=== PATIENT | female | born 1985 | race Caucasian/White ===

== ENCOUNTER → 2016-08-28 | Outpatient (CLI) | payer BC ==
[~2016-08-28] MED LIST: DIPH1TAB; FAMO20TA11 PO; MULT-506 PO; OXYC-57 PO; PRENTAB26 PO; TRDI30X IV.
[2016-08-28 16:01] LABS: URINE APPEARANCE CLEAR (CLEAR); URINE BILIRUBIN NEG (NEG); URINE COLOR YELLOW; URINE EPITHELIAL CELL AUTO 20-30 /lpf (0-5); URINE NITRITE NEG (NEG); URINE PH 6.5 (4.5-7.5); URINE SPECIFIC GRAVITY 1.009 (1.000-1.030); UROBILINOGEN NEG (NEG)
[2016-08-28 16:02] LABS: MANUAL MICROSCOPIC REQUIRED? NO; REVIEW REQ? NO
[2016-08-28 16:46] LABS: HEMATOCRIT 33.6 % (37-47)
[2016-08-28 19:07] LABS: GTGD 50 Grams
== END | disposition home or self-care (01) ==
LOC: C.LAB1850 14:40
PROVIDERS: ATTEND Obstetrics & Gynecology
DX: Z34.83 Encounter for supervision of other normal pregnancy, third trimester (principal)

== ENCOUNTER → 2016-10-23 | Outpatient (CLI) | payer BC | END | disposition home or self-care (01) | LOC: C.LABSPEC 11:06 | PROVIDERS: ATTEND Obstetrics & Gynecology | DX: Z34.83 Encounter for supervision of other normal pregnancy, third trimester (principal) ==

== ENCOUNTER → 2016-11-08 | Outpatient (CLI) | payer BC ==
[~2016-11-08] MED LIST changes: -DIPH1TAB; +DIPH1TAB87
[2016-11-08 17:20] LABS: BASO % 0.1 %; BASO ABS # 0.01 K/uL (0-0.2); COMPLETE YES; EOS % 2.6 %; HEMATOCRIT 37.8 % (37-47); IG% 0.3 %; LYMPH % 27.9 %; LYMPH ABS # 2.57 K/uL (1.2-3.4); MEAN CELL VOLUME 91.3 fL (80-100); MEAN CORPUSCULAR HEMOGLOBIN 30.7 pg (25-34); MEAN CORPUSCULAR HGB CONC 33.6 g/dl (32-36); MEAN PLATELET VOLUME 11.3 fL (7.4-10.4); MONO % 6.9 %; NEUT % 62.2 %; PLATELET COUNT 231 K/uL (130-400); RED BLOOD COUNT 4.14 M/uL (4.2-5.4); WHITE BLOOD COUNT 9.22 K/uL (4.8-10.8)
== END | disposition home or self-care (01) ==
LOC: C.LAB1850 16:42
PROVIDERS: ATTEND Obstetrics & Gynecology
DX: Z01.812 Encounter for preprocedural laboratory examination (principal)

== ENCOUNTER 2016-11-11 07:21 | Inpatient (IN) | payer BC ==
--- NOTE | 2016-11-08 19:06 | HISTORY & PHYSICAL EXAMINATION ---
DATE OF ADMISSION: 11/11/2016 ADMIT DIAGNOSES: 1. Intrauterine at 39 and 1/7 weeks. 2. Double footling breech presentation. HISTORY OF PRESENT ILLNESS: The patient is a 31-year-old white female, 2, para 1-0-0-1 with an EDC of 11/17/2016, making her 39 and 1/7 weeks. She presents for a primary section for footling breech presentation. This was discovered on an ultrasound at 36 weeks where low lying placenta was resolved but the footling breech presentation was discovered. She declines attempted external cephalic version. Otherwise, this has been uncomplicated. She notes mild contractions, no vaginal bleeding, some normal discharge for her and good movement. PAST OBSTETRIC AND GYNECOLOGIC HISTORY: Significant for a normal spontaneous vaginal delivery in 2013 for a 7-pound 2-ounce baby at 39 and 4/7 weeks. She does have a history of an abnormal Pap smear with positive HPV and a colposcopy in 2004. She denies other sexually transmitted diseases. ALLERGIES: SULFA DRUGS. MEDICATIONS: Dulcolax as needed, tabs, Tums and Benadryl as needed. PAST MEDICAL HISTORY: The patient is healthy. Denies thyroid disease, asthma, heart disease, heart murmur, diabetes, kidney or liver problems. She has a history of chickenpox in the past. PAST SURGICAL HISTORY: Includes wisdom teeth removal and colposcopy. SOCIAL HISTORY: The patient is , lives with her spouse and daughter. She denies tobacco, alcohol or drug use. PHYSICAL EXAMINATION: GENERAL: This is a well-developed, well-nourished white female in no acute distress. VITAL SIGNS: Blood pressure 106/82, weight 179 pounds. NECK: Supple without thyromegaly or lymphadenopathy. CHEST: Clear to auscultation bilaterally. CARDIOVASCULAR: Regular rate and rhythm without murmurs, gallops or rubs. BACK: Without costovertebral angle tenderness. ABDOMEN: Soft, gravid and nontender. EXTREMITIES: Show some trace edema but are otherwise benign. PELVIC: Deferred. LABORATORY DATA: Blood type B positive, antibody negative, Pap negative, rubella immune, RPR nonreactive, hepatitis B is negative, HIV negative, chlamydia and gonorrhea cultures negative, 1-hour GTT at 16 weeks 112. Declined quad screen, 1-hour GTT at 28 weeks was 100 and GBS is negative. ASSESSMENT: Lolly is a 31-year-old white female, 2, para 1-0-0-1 with an EDC of 11/17/2016 for an estimated gestational age of 39 and 1/7 weeks, who has a footling breech presentation. She presents today for primary section. She declines external cephalic version. The risks of the procedure were discussed with the patient including the risks of anesthesia, bleeding requiring transfusion, infection, poor wound healing, damage to surrounding structures including bowel, bladder, vessels, nerves and ureters with need for further surgery, hospitalization or intervention. We discussed there could be a possible risk to the fetus of injury. We discussed the other risks of surgery including heart attack, blood clot, stroke or . Questions were asked and answered. Consent was reviewed and signed and surgery is scheduled for November 11.
[~2016-11-11] VITALS: Ht 170.2 cm; Wt 81.5 kg
[2016-11-11] VITALS (11 sets, daily range): BP systolic 119–126; BP diastolic 68–75; PULSE 77–89; TEMP 36.5–36.7; O2SAT 95–100; Ht 170.2 cm; Wt 81.5 kg
[~2016-11-11 07:21] MED LIST changes: +CEFAZOLIN IV 2,000 MG in DEXTROSE 5% 50ML 50 ML IV SCH; -DIPH1TAB87; -FAMO20TA11 PO; -OXYC-57 PO; -TRDI30X IV.
[2016-11-11] MEDS ORDERED: CITRIC ACID/SODIUM CITRATE 15 ML UDC PO ONE (08:00)
[2016-11-11 09:02] LABS: BASO % 0.2 %; BASO ABS # 0.02 K/uL (0-0.2); COMPLETE YES; EOS % 2.5 %; HEMATOCRIT 38.6 % (37-47); IG% 0.3 %; LYMPH % 27.6 %; LYMPH ABS # 2.49 K/uL (1.2-3.4); MEAN CELL VOLUME 90.8 fL (80-100); MEAN CORPUSCULAR HEMOGLOBIN 31.1 pg (25-34); MEAN CORPUSCULAR HGB CONC 34.2 g/dl (32-36); MEAN PLATELET VOLUME 11.2 fL (7.4-10.4); MONO % 6.9 %; NEUT % 62.5 %; PLATELET COUNT 234 K/uL (130-400); RED BLOOD COUNT 4.25 M/uL (4.2-5.4); WHITE BLOOD COUNT 9.02 K/uL (4.8-10.8)
[2016-11-11] MEDS ORDERED: DIPH1TAB87 (09:36)
[2016-11-11] MEDS ORDERED: FAMO20TA11 PO (09:36)
[2016-11-11] MEDS ORDERED: FENTANYL CITRATE INJ 50 MCG/1 ML 2 ML VIAL ONE (10:01)
[2016-11-11] MEDS ORDERED: MoRPHine SULFATE PF 1 MG/ML 10 ML AMP/VIAL ONE (10:02)
[2016-11-11] MEDS ORDERED: PHENYLEPHRINE 100MCG/ML 5ML SYR ONE (10:09)
[2016-11-11] MEDS ORDERED: OXYTOCIN INJ 10 UNITS/ML VIAL ONE (10:11)
[2016-11-11] MEDS ORDERED: CITRIC ACID/SODIUM CITRATE 15 ML UDC ONE (10:12)
[2016-11-11] MEDS ORDERED: ONDANSETRON INJ 2 MG/ML 2 ML VIAL ONE (11:14)
[2016-11-11] MEDS ORDERED: METHYLERGONOVINE MALEATE 0.2 MG/ML AMP ONE (11:16)
[2016-11-11] MEDS ORDERED: DEXAMETHASONE SOD INJ 4 MG/ML VIAL ONE (11:18)
[2016-11-11] MEDS ORDERED: PROMETHAZINE HCL INJ 25 MG/ML 1 ML VIAL ONE (11:20)
[2016-11-11] MEDS ORDERED: EpHEDrine SULFATE 50MG/5ML SYR ONE (11:21)
[2016-11-11] MEDS ORDERED: DIPHTHERIA/TETANUS/PERTUSSIS 0.5 ML SYR/VIAL IM. ONE (11:30)
[2016-11-11] MEDS ORDERED: BENZOCAINE 20% AER SPR 82.5 GM CAN EXT PRN (11:30)
[2016-11-11] MEDS ORDERED: SENNA 8.6 MG TAB PO PRN (11:30)
[2016-11-11] MEDS ORDERED: MAGNESIUM HYDROXIDE SUSP 30 ML UDC PO PRN (11:30)
[2016-11-11] MEDS ORDERED: HYDROCORTISONE ACETATE 25 MG SUPP PR PRN (11:30)
[2016-11-11] MEDS ORDERED: SUPERCREAM 0.870 % 15GM JAR EXT PRN (11:30)
[2016-11-11] MEDS ORDERED: LANOLIN OINT EXT PRN ×2 (11:30)
--- NOTE | 2016-11-11 11:41 | [facility] Post Operative Brief Note ---
Immediate Operative Summary Operative Date Nov 11, 2016. Pre-Operative Diagnosis Inter uterine at 39 weeks and 1 day. Breech presentation. Pt. desires primary caesarean section. Post-Operative Diagnosis Same as above. Procedure(s) Performed Primary lower transverse caesarean section. Delivery of live female at 1104. Surgeon Dr[address] Pittman Automat Car Attendant Surgeon(s) Dr. Mensah Estimated Blood Loss 700cc Findings Delivered a viable female , APGARS 8,9. Weight 8 lbs 12.6oz. Normal uterus, fallopian tubes and ovaries bilaterally Specimens A: Placenta-hold B: Cord blood Drains Downey to gravity Anesthesia Spinal Complication(s) None Disposition L&D
[2016-11-11] MEDS ORDERED: LACTATED RINGER'S 1000ML 500 ML IV PRN (11:44)
[2016-11-11] MEDS ORDERED: NALOXONE HCL INJ 1 MG in SODIUM CHLORIDE 0.9% 1000ML 1,000 ML IV PRN ×4 (11:44)
[2016-11-11] MEDS ORDERED: NALOXONE HCL INJ 0.08 MG in SYRINGE 1.8 ML IV PRN (11:44)
[2016-11-11] MEDS ORDERED: SODIUM CHLORIDE 0.9% 1000ML 1,000 ML IV PRN (11:44)
[2016-11-11] MEDS ORDERED: ONDANSETRON INJ 2 MG/ML 2 ML VIAL IV PRN (11:45)
[2016-11-11] MEDS ORDERED: NALOXONE HCL 0.4 MG/1 ML VIAL/CARP IV PRN (11:45)
[2016-11-11] MEDS ORDERED: PROMETHAZINE HCL INJ 25 MG in SODIUM CHLORIDE 0.9% 50ML 50 ML IV PRN (11:45)
[2016-11-11] MEDS ORDERED: EpHEDrine SULFATE INJ 50 MG/ML AMP IV PRN (11:45)
[2016-11-11] MEDS ORDERED: DiphenhydrAMINE HCL 50 MG/ML VIAL IV PRN (11:45)
[2016-11-11] MEDS ORDERED: NO NARCOTICS OR SEDATIVES SCH (11:45)
[2016-11-11] MEDS ORDERED: NALBUPHINE HCL INJ 10 MG/ML AMP IV PRN (11:45)
[2016-11-11] MEDS ORDERED: MoRPHine SULFATE PF 1 MG/ML 10 ML AMP/VIAL EPI PRN (11:45)
--- NOTE | 2016-11-11 11:48 | Medical Student: [facility] ---
Immediate Operative Summary Operative Date Nov 11, 2016. Pre-Operative Diagnosis Intrauterine at 39 1/7 wks. Double footling breech presentation Post-Operative Diagnosis Same. Procedure(s) Performed Primary section with low transverse incision. Viable female infant delivered at [address]. Sur[address] Mary Pittman [employer] Surgeon(s) Dr. Myles Mensah Estimated Blood Loss 700cc Findings Viable infant female, APGARs 8, 9 at 1 and 5 minutes respectively. Weight 8 lb 12 oz. Normal uterus, ovaries and fallopian tubes bilaterally. Specimens A. Placenta - hold B. Cord Blood Drains Downey Anesthesia Spinal Complication(s) None Disposition L&D
[2016-11-11] MEDS ORDERED: OXYTOCIN INJ 20 UNITS in LACTATED RINGER'S 1000ML 1,000 ML IV SCH (12:00)
[2016-11-11] MEDS: KETOROLAC TROMETHAMINE 30 MG/ML VIAL IV. PRN ×2 (14:51→23:48)
--- NOTE | 2016-11-11 17:50 | Anesthesiology Progress Note ---
Anesthesia Post Op Note Date & Time Nov 11, 2016 at 17:49 Vital Signs Pain Intensity: 2.0 Vital Signs Past 12 Hours Date Time Temp Pulse Resp B/P Pulse Ox O2 Delivery O2 Flow Rate FiO2 11/11/16 17:15 18 100 11/11/16 16:15 18 100 11/11/16 15:30 100 Room Air 11/11/16 15:30 36.7 86 18 126/74 100 Room Air 11/11/16 15:15 18 100 11/11/16 14:45 36.5 77 16 126/75 100 Room Air Notes Mental Status: alert / awake / arousable, participated in evaluation Pt Amnestic to Procedure: No Nausea / Vomiting: adequately controlled Pain: adequately controlled Airway Patency, RR, SpO2: stable & adequate BP & HR: stable & adequate Hydration State: stable & adequate Neuraxial Anesthesia: was administered, sensory block is resolving Anesthetic Complications: no major complications apparent
[2016-11-11] MEDS ORDERED: NURSING VERBAL MED ORDER ONE (20:30)
[2016-11-11] MEDS ORDERED: LACTATED RINGER'S 1000ML 1,000 ML IV SCH (20:45)
[2016-11-12] VITALS (8 sets, daily range): BP systolic 102–112; BP diastolic 60–68; PULSE 63–82; TEMP 36.5–37.2; O2SAT 97–100
[2016-11-12] MEDS: IBUPROFEN 600 MG TAB PO PRN ×4 (05:32→20:32)
[2016-11-12] MEDS: OXYCODONE/ACETAMINOPHEN 5-325 TAB PO PRN ×4 (05:32→20:32)
[2016-11-12] MEDS ORDERED: OXYCODONE/ACETAMINOPHEN 5-325 TAB PO PRN (06:00)
[2016-11-12] MEDS ORDERED: ONDANSETRON INJ 2 MG/ML 2 ML VIAL IV PRN (06:00)
[2016-11-12] MEDS ORDERED: DiphenhydrAMINE HCL 50 MG/ML VIAL IV PRN (06:00)
[2016-11-12] MEDS ORDERED: KETOROLAC TROMETHAMINE 30 MG/ML VIAL IV. PRN (06:00)
[2016-11-12] MEDS ORDERED: DC INTRASPINAL MORPHINE ONE (06:00)
[2016-11-12 06:25] LABS: BASO % 0.1 %; BASO ABS # 0.01 K/uL (0-0.2); COMPLETE YES; EOS % 0.3 %; HEMATOCRIT 32.8 % (37-47); IG% 0.3 %; LYMPH % 23.7 %; LYMPH ABS # 3.01 K/uL (1.2-3.4); MEAN CELL VOLUME 91.6 fL (80-100); MEAN CORPUSCULAR HEMOGLOBIN 30.4 pg (25-34); MEAN CORPUSCULAR HGB CONC 33.2 g/dl (32-36); MEAN PLATELET VOLUME 11.1 fL (7.4-10.4); NEUT % 68.6 %; PLATELET COUNT 217 K/uL (130-400); RED BLOOD COUNT 3.58 M/uL (4.2-5.4)
--- NOTE | 2016-11-12 06:49 | Medical Student: [facility] ---
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 Subjective conversation w/ patient Ambulation: limited ambulation (to bathroom) Voiding: no voiding problems Passing Gas: Yes Diet Tolerance: Regular Diet Lochia: Moderate Feeding Type: Breast Feeding Pain: 2/10, controlled with pain medication Review of Systems Constitutional: No chills, No fever Respiratory: No cough, No shortness of breath Cardiac: No chest pain, No edema, No palpitations Breast: No breast pain, No problem reported Abdomen: + pain (with movement), No nausea, No vomiting Female : No dysuria, No urinary frequency Objective Vital Signs Date Time Temp Pulse Resp B/P Pulse Ox O2 Delivery O2 Flow Rate FiO2 11/12/16 03:00 36.8 73 18 112/68 100 Room Air 11/12/16 02:00 16 98 11/12/16 01:00 18 100 11/12/16 00:15 100 Room Air 11/12/16 00:15 37.2 82 18 106/66 Room Air 11/12/16 00:15 20 99 11/12/16 00:00 18 98 11/11/16 23:00 18 95 11/11/16 22:15 18 100 11/11/16 21:15 18 98 11/11/16 20:15 18 99 11/11/16 19:15 18 100 11/11/16 19:15 36.5 89 18 119/68 100 Room Air 11/11/16 18:15 18 99 11/11/16 17:15 18 100 11/11/16 16:15 18 100 11/11/16 15:30 100 Room Air 11/11/16 15:30 36.7 86 18 126/74 100 Room Air 11/11/16 15:15 18 100 11/11/16 14:45 36.5 77 16 126/75 100 Room Air Physical Exam General Appearance: WELL-APPEARING, NO APPARENT DISTRESS Respiratory/Chest: lungs clear, normal breath sounds, no respiratory distress, no accessory muscle use Cardiovascular: regular rate, rhythm, no edema, no murmur Abdomen: normal bowel sounds, soft Fundus: Firm, Non-Tender, Relation to Umbilicus (1 cm below) Incision Description: Clean, Dry & Intact Extremities: normal inspection, no pedal edema, no calf tenderness Laboratory Results Last 24 Hours Test 4/17/17 08:30 11/12/16 05:50 White Blood Count 9.02 K/uL 12.70 K/uL Red Blood Count 4.25 M/uL 3.58 M/uL Hemoglobin 13.2 g/dL 10.9 g/dL Hematocrit 38.6 % 32.8 % Mean Corpuscular Volume 90.8 fL 91.6 fL Mean Corpuscular Hemoglobin 31.1 pg 30.4 pg Mean Corpuscular Hemoglobin Concent 34.2 g/dl 33.2 g/dl Platelet Count 234 K/uL 217 K/uL Mean Platelet Volume 11.2 fL 11.1 fL Neutrophils (%) (Auto) 62.5 % 68.6 % Lymphocytes (%) (Auto) 27.6 % 23.7 % Monocytes (%) (Auto) 6.9 % 7.0 % Eosinophils (%) (Auto) 2.5 % 0.3 % Basophils (%) (Auto) 0.2 % 0.1 % Neutrophils # (Auto) 5.63 K/uL 8.71 K/uL Lymphocytes # (Auto) 2.49 K/uL 3.01 K/uL Monocytes # (Auto) 0.62 K/uL 0.89 K/uL Eosinophils # (Auto) 0.23 K/uL 0.04 K/uL Basophils # (Auto) 0.02 K/uL 0.01 K/uL RDW Standard Deviation 45.5 fL 46.1 fL RDW Coefficient of Variation 13.9 % 13.9 % Immature Granulocyte % (Auto) 0.3 % 0.3 % Immature Granulocyte # (Auto) 0.03 K/uL 0.04 K/uL Medications Current Inpatient Medications Medications (Trade) Dose Ordered Sig/Susan Route Start Time Stop Time Status Last Admin Dose Admin Prenat Multivit/ [place]/Iron/Folic Ac ( Vitamin Tab) 1 tab DAILY PO 11/12/16 08:00 12/12/16 07:59 Ketorolac Tromethamine (Toradol Inj) 30 mg Q6H PRN IV. 11/12/16 06:00 11/17/16 05:59 Oxycodone/ Acetaminophen (Percocet 5-325mg Tab) 1 tab Q4H PRN PO 11/12/16 06:00 11/26/16 05:59 11/12/16 05:32 1 TAB Oxycodone/ Acetaminophen (Percocet 5-325mg Tab) 2 tab Q4H PRN PO 11/12/16 06:00 11/26/16 05:59 Ibuprofen (Motrin Tab) 600 mg Q4H PRN PO 11/11/16 11:30 12/11/16 11:29 11/12/16 05:32 600 MG Ondansetron HCl (Zofran Inj) 4 mg Q4H PRN IV 11/12/16 06:00 12/12/16 05:59 Bisacodyl (Dulcolax Tab) 5 mg HS ONCE PO 11/12/16 22:00 11/12/16 22:01 Magnesium Hydroxide (Milk Of Magnesia Susp) 30 ml HS PRN PO 11/11/16 11:30 12/11/16 11:29 Cocaine HCl (Supercream 0.870% Cr) BID PRN EXT 11/11/16 11:30 11/25/16 11:29 Lanolin (Lanolin Oint) PRN PRN EXT 11/11/16 11:30 12/11/16 11:29 Hydrocortisone Acetate (Anusol Hc Supp) 25 mg BID PRN [place] 11/11/16 11:30 12/11/16 11:29 Benzocaine (Dermoplast Aero Spr) 1 appln PRN PRN EXT 11/11/16 11:30 12/11/16 11:29 Diphenhydramine HCl (Benadryl Cap) 25 mg QID PRN PO 11/12/16 06:00 12/12/16 05:59 Diphenhydramine HCl (Benadryl Inj) 25 mg QID PRN IV 11/12/16 06:00 12/12/16 05:59 Senna 17.2 mg 17.2 mg HS PRN PO 11/11/16 11:30 12/11/16 11:29 Lactated Ringer's (Lr 1000ml) 1,000 ml @ 125 mls/hr Q8H IV 11/11/16 20:45 12/11/16 20:44 11/11/16 21:13 125 MLS/HR Assessment and Plan Post-Op Day Number: 1 Continue Routine Care: ASSESSMENT: Lolly is a 31 year old postop day#1 s/p section for double footling breech at 39 1/7 weeks. She is Blood type B+, GBS negative and Rubella immune. Doing well clinically. PLAN: Continue routine care Encourage ambulation as tolerated. Continue PO diet and fluids. Encourage . Pain medication as needed. Resident Physician Supervision Note: I interviewed and examined the patient. Discussed with Dr. Mensah and agree with findings and plan as documented in the note. Any exceptions or clarifications are listed here: [None] Documented By: Bernardino West
--- NOTE | 2016-11-12 07:06 | OPERATIVE REPORT ---
DATE OF OPERATION: 11/11/2016 PREOPERATIVE DIAGNOSES: 1. Intrauterine at 39 and 1/7 weeks. 2. Complete breech. POSTOPERATIVE DIAGNOSES: Same. PROCEDURE: Primary low transverse section. SURGEON: Dr. Mary Pittman. VALVE TECHNICIAN: Franco Mensah, PGY-1 and Mary Oneill, MS3 ANESTHESIA: Spinal. ESTIMATED BLOOD LOSS: 700 mL. FLUIDS: 2000 mL. URINE OUTPUT: 300 mL of concentrated urine drained from the bladder at the end of the procedure. INDICATIONS: Lolly is a 31-year-old white female 2, para 1-0-0-1, whose baby was discovered to be in double footling breech presentation at a 36-week ultrasound. She was offered an attempted external cephalic version, which she declined. She presents today for primary section. FINDINGS: Viable female infant in complete breech presentation, sacrum anterior. Apgars were 8 and 9. Weight 8 pounds 12 ounces. Normal uterus, tubes, and ovaries were noted bilaterally. COMPLICATIONS: None. DRAINS: Downey. DISPOSITION: To recovery room in stable condition. DESCRIPTION OF PROCEDURE: The patient was taken to the operating room, where she was identified verbally and by bracelet. She was seated on the operating table where a spinal anesthetic was placed via anesthesia. She was then placed in dorsal supine position with a leftward tilt and a Downey catheter was placed sterilely. She was then prepped and draped in normal sterile fashion. Her anesthetic was tested and found to be adequate. Time-out was held identifying correct patient, procedure and positioning and preoperative antibiotics. A Pfannenstiel skin incision was made with the knife and taken down to the underlying layer of fascia with the knife. Bleeding was attended to with Bovie electrocautery. The fascia was incised in the midline with the knife and taken out laterally with scissors. The superior edge of the fascial incision was grasped, elevated and the underlying layer of rectus muscle was taken off bluntly and with scissors. In a similar fashion, the inferior edge of the fascial incision was grasped, elevated and the underlying layer of rectus muscle was taken off bluntly and with scissors. The muscles were bluntly and sharply in the midline. The peritoneum was entered bluntly and taken superiorly and inferiorly with good visualization of the bladder. Palpation of the uterus revealed persistent breech presentation. An incision was scored with a knife and was entered. The incision was stretched with the die cast operator's fingers. The amniotic fluid was ruptured with a snap, it was clear. The die cast operator's hand was placed into the pelvis and the sacrum was identified to be sacrum anterior and the die cast operator's hand delivered the breech through the incision with gentle pressure. The breech was further pulled out. The legs were delivered first right and first left. The baby was then turned to her left. The arm on the right and then arm on the left were delivered and then with a [id number] maneuver the head was delivered. The nose and mouth were bulb suctioned. The cord was clamped and cut and the infant was taken off to the waiting associate sales representative for drying and attention. Cord blood and segment were obtained. Placenta was manually extracted. The uterus was exteriorized and cleared of all clot and debris with moistened laparotomy sponges. The hysterotomy incision was repaired in 2 layers, the first in a running locked layer and second in an imbricating layer. Two [id number] sutures were then used for hemostasis. The posterior cul-de-sac was irrigated and cleared of all clot and debris. Hysterotomy incision was again inspected and found to be hemostatic. The uterus was reanteriorized. The hysterotomy incision again was inspected. There was some oozing and a [id number] suture was placed as this was adequate for hemostasis. The rectus muscles were reapproximated in the midline with 3 interrupted sutures of 0 Vicryl. The fascia was repaired with 0 Vicryl meeting in the midline. Subcuticular tissue was irrigated and bleeding was attended to with Bovie electrocautery. Skin was closed with subcuticular stitch of 4-0 Vicryl. All sponge, lap and needle counts were correct x2. The patient tolerated the procedure well and was taken to recovery room in stable condition. I attest to the content of the Intraoperative Record and any orders documented therein. Any exceptio ns are noted below.
--- NOTE | 2016-11-12 07:21 | Progress Note ---
Subjective Nov 12, 2016. Subjective conversation w/ patient, physical exam Ambulation: ambulating normally Voiding: no voiding problems Passing Gas: Yes Diet Tolerance: Regular Diet Lochia: Moderate Feeding Type: Breast Feeding Pain: 2/10 improves with medication Comment: Patient was seen at the bedside. No acute event overnight. Review of Systems Constitutional: No fever Respiratory: No cough, No shortness of breath Cardiac: No chest pain Breast: No breast lump Abdomen: No nausea, No pain, No vomiting Female : No dysuria Denies headache Objective Vital Signs Date Time Temp Pulse Resp B/P Pulse Ox O2 Delivery O2 Flow Rate FiO2 11/12/16 03:00 36.8 73 18 112/68 100 Room Air 11/12/16 02:00 16 98 11/12/16 01:00 18 100 11/12/16 00:15 100 Room Air 11/12/16 00:15 37.2 82 18 106/66 Room Air 11/12/16 00:15 20 99 11/12/16 00:00 18 98 11/11/16 23:00 18 95 11/11/16 22:15 18 100 11/11/16 21:15 18 98 11/11/16 20:15 18 99 11/11/16 19:15 18 100 11/11/16 19:15 36.5 89 18 119/68 100 Room Air 11/11/16 18:15 18 99 11/11/16 17:15 18 100 11/11/16 16:15 18 100 11/11/16 15:30 100 Room Air 11/11/16 15:30 36.7 86 18 126/74 100 Room Air 11/11/16 15:15 18 100 11/11/16 14:45 36.5 77 16 126/75 100 Room Air Physical Exam General Appearance: WELL-APPEARING, WD/WN Respiratory/Chest: chest non-tender, lungs clear, normal breath sounds Cardiovascular: regular rate, rhythm Abdomen: normal bowel sounds, non tender, soft Fundus: Firm, Relation to Umbilicus (1cm below) Incision Description: Clean, Dry & Intact Extremities: non-tender, no pedal edema, no calf tenderness Laboratory Results Last 24 Hours Test 11/11/16 08:30 11/12/16 05:50 White Blood Count 9.02 K/uL 12.70 K/uL Red Blood Count 4.25 M/uL 3.58 M/uL Hemoglobin 13.2 g/dL 10.9 g/dL Hematocrit 38.6 % 32.8 % Mean Corpuscular Volume 90.8 fL 91.6 fL Mean Corpuscular Hemoglobin 31.1 pg 30.4 pg Mean Corpuscular Hemoglobin Concent 34.2 g/dl 33.2 g/dl Platelet Count 234 K/uL 217 K/uL Mean Platelet Volume 11.2 fL 11.1 fL Neutrophils (%) (Auto) 62.5 % 68.6 % Lymphocytes (%) (Auto) 27.6 % 23.7 % Monocytes (%) (Auto) 6.9 % 7.0 % Eosinophils (%) (Auto) 2.5 % 0.3 % Basophils (%) (Auto) 0.2 % 0.1 % Neutrophils # (Auto) 5.63 K/uL 8.71 K/uL Lymphocytes # (Auto) 2.49 K/uL 3.01 K/uL Monocytes # (Auto) 0.62 K/uL 0.89 K/uL Eosinophils # (Auto) 0.23 K/uL 0.04 K/uL Basophils # (Auto) 0.02 K/uL 0.01 K/uL RDW Standard Deviation 45.5 fL 46.1 fL RDW Coefficient of Variation 13.9 % 13.9 % Immature Granulocyte % (Auto) 0.3 % 0.3 % Immature Granulocyte # (Auto) 0.03 K/uL 0.04 K/uL Medications Current Inpatient Medications Medications (Trade) Dose Ordered Sig/Susan Route Start Time Stop Time Status Last Admin Dose Admin Prenat Multivit/ [place]/Iron/Folic Ac ( Vitamin Tab) 1 tab DAILY PO 11/12/16 08:00 12/12/16 07:59 Ketorolac Tromethamine (Toradol Inj) 30 mg Q6H PRN IV. 11/12/16 06:00 11/17/16 05:59 Oxycodone/ Acetaminophen (Percocet 5-325mg Tab) 1 tab Q4H PRN PO 11/12/16 06:00 11/26/16 05:59 11/12/16 05:32 1 TAB Oxycodone/ Acetaminophen (Percocet 5-325mg Tab) 2 tab Q4H PRN PO 11/12/16 06:00 11/26/16 05:59 Ibuprofen (Motrin Tab) 600 mg Q4H PRN PO 11/11/16 11:30 12/11/16 11:29 11/12/16 05:32 600 MG Ondansetron HCl (Zofran Inj) 4 mg Q4H PRN IV 11/12/16 06:00 12/12/16 05:59 Bisacodyl (Dulcolax Tab) 5 mg HS ONCE PO 11/12/16 22:00 11/12/16 22:01 Magnesium Hydroxide (Milk Of Magnesia Susp) 30 ml HS PRN PO 11/11/16 11:30 12/11/16 11:29 Cocaine HCl (Supercream 0.870% Cr) BID PRN EXT 11/11/16 11:30 11/25/16 11:29 Lanolin (Lanolin Oint) PRN PRN EXT 11/11/16 11:30 12/11/16 11:29 Hydrocortisone Acetate (Anusol Hc Supp) 25 mg BID PRN [place] 11/11/16 11:30 12/11/16 11:29 Benzocaine (Dermoplast Aero Spr) 1 appln PRN PRN EXT 11/11/16 11:30 12/11/16 11:29 Diphenhydramine HCl (Benadryl Cap) 25 mg QID PRN PO 11/12/16 06:00 12/12/16 05:59 Diphenhydramine HCl (Benadryl Inj) 25 mg QID PRN IV 11/12/16 06:00 12/12/16 05:59 Senna 17.2 mg 17.2 mg HS PRN PO 11/11/16 11:30 12/11/16 11:29 Lactated Ringer's (Lr 1000ml) 1,000 ml @ 125 mls/hr Q8H IV 11/11/16 20:45 12/11/16 20:44 11/11/16 21:13 125 MLS/HR Assessment and Plan Post-Op Day#: 1 Continue Routine Care: A/P: This is a 31 y/o female, , s/p for breech position. She is ambulating and clinically stable. Plan: - Vitals signs are reviewed and WNL (Tmax 37.2 ) - Last Hgb is 10.9 - Blood type B+, GBS neg, Rubella Immune - Routine care - Encourage ambulation, monitor and control pain with medication as needed , continue with regular diet as tolerated and monitor lochia - Stool softeners and sitz bath recommended - Encourage breast feeding and educate about breast feeding
[2016-11-12] MEDS: PRENATAL VITAMIN TAB PO SCH (08:46)
[2016-11-12] MEDS ORDERED: BISACODYL 5 MG TABEC PO ONE (22:00)
[2016-11-13 00:33] VITALS: BP 109/65; PULSE 65; TEMP 36.5
[2016-11-13] MEDS: IBUPROFEN 600 MG TAB PO PRN ×4 (01:39→16:13)
[2016-11-13] MEDS: OXYCODONE/ACETAMINOPHEN 5-325 TAB PO PRN ×4 (01:40→16:14)
--- NOTE | 2016-11-13 06:49 | Discharge Instructions ---
Discharge Instructions Date of Service Nov 13, 2016. Admission Reason for Admission: Breech Discharge Discharge Diagnosis / Problem: s/p Discharge Goals Goal(s): Routine recovery after Medications Continue Dispensed Medications: supercream, dermaplast, tucks, lansinoh Activity Recommendations Activity Limitations: as noted below . Instructions / Follow-Up Instructions / Follow-Up ACTIVITY RECOMMENDATIONS: * Gradual return to full activity over the next 2-3 weeks. * No lifting - nothing heavier than baby over the next 2-3 weeks. * Do not engage in vigorous exercise, sexual activity or sports until cleared by your physician. * Do not drive or operate any motorized equipment until cleared by your physician. * You may shower/bathe daily. MEDICATIONS: For discomfort or pain, you may use Acetaminophen (Tylenol), Ibuprofen (Advil), or Naproxen (Aleve) following the package directions. For constipation you may use Colace following the package directions. BREAST CARE: If you are not breast feeding: * Wear a supportive bra 24 hours a day for one to two weeks. * Avoid stimulating your breasts and nipples as much as possible during the first few weeks after delivery. * When taking a shower, have the warm water hit your back, not breasts. * When your breasts feel full, apply ice packs. Usually three to four times a day helps ease the discomfort. * Take a mild pain medication (Tylenol / Motrin) when you are uncomfortable. If breast feeding: * Use breast milk to lubricate nipples. Lansinoh cream may be used for sore nipples. You do not need to remove cream prior to breast feeding. If using a different brand of cream, check the label for directions regarding removal of cream prior to nursing. * Wear a supportive bra. * If having problems with breasts or breast feeding, call a apprenticeship consultant or your health care provider. SPECIAL CARE INSTRUCTIONS: When you are discharged from the hospital, it is important for you to follow the instructions listed below: * During the first week at home, you should be able to care for yourself and your baby. In addition, the usual light household activities are encouraged. * Limit your activities to the way you feel. Do not try to clean the house or move furniture. Be sensible. * If you actively engage in sports and have done so up until the time of your delivery, you may resume these activities as soon as you feel able. This may take up to one month or even longer. Use good judgment. * Continue to take your vitamins for at least six weeks after the of your baby. * Your diet need not be limited unless you were on a special diet before your delivery. Breast-feeding mothers need around 2500 calories per day and at least 64-80 ounces of fluid per day (8 to 10 glasses). * You should eat foods from the four major food groups. Crash diets or fad diets are to be avoided. Eating lean meats, fresh fruits and vegetables, low-fat dairy products, high fiber foods and a regular exercise program, will help you get back to your pre- weight without putting your health at risk. * Constipation is sometimes a problem after delivery. Take a mild laxative as needed. If breast feeding, Milk of Magnesia is acceptable to use. You may use a suppository or Fleets enema. * A daily shower or tub bath is suggested. Wash incision daily with warm soapy water and pat dry. It doesn't need to be covered unless drainage is present. * A bloody vaginal discharge will usually continue until around four weeks . A small amount of bleeding may continue for as long as six weeks. Vaginal discharge changes from the bright red bleeding after delivery to pink then brownish and finally yellowish-pink before becoming white and disappearing. * Bleeding may increase with activity. Your first period may come in 4-8 weeks. If you are breast feeding, your period may be delayed even longer. * Argos (sex) can begin whenever both you and your partner feel comfortable and do not have any form of genital infection. It is recommended that you wait at least six weeks for internal and external healing to occur. If you have questions, please talk to your health care practitioner. A condom should be used to prevent infection and . * Foreplay, gentle intercourse and lubrication is very important the first several times to prevent pain. A water-based lubricant such as K-Y jelly or Astroglide may be used. * If you have RH negative blood and your baby is RH positive, you will receive RHOGAM by injection prior to discharge. The nurse will give you a card to keep with you that has the date and place that you received RHOGAM after delivery. * During your care, you had a Rubella screen done to check for the presence of rubella antibodies in your blood. If your test was negative, you will receive a Rubella vaccine prior to discharge. This vaccine may cause a fever, soreness at the injection site and flu-like symptoms. If these symptoms persist, notify your health care practitioner. is not advised for one month after a Rubella vaccine. * Verbalizes understanding of car seat law as reviewed with patient nursing. * Car Seat hand-out given and reviewed with patient by nursing. * Shaken baby information reviewed with patient by nursing. Call you doctor if: * Heavy bleeding (saturating several pads an hour) or passing clots the size of your fist. * A fever >101 degrees F (38.3 degrees C) on two occasions four hours apart and /or chills. * Unusual pain in the pelvic or vaginal areas. * Call the doctor for any increased redness, drainage or swelling around the incision and any pain unrelieved by prescribed pain medication. * "Baby Blues" lasting longer than two weeks. If you have any questions or concerns, call your health care practitioner at . FOLLOW UP VISIT: * Please call the office at to schedule a 6 week examination. It is important you keep this appointment. It is important for you to make arrangements for either yearly or twice yearly check-ups thereafter. Current Hospital Diet Patient's current hospital diet: Regular OB Diet Discharge Diet Recommended Diet: Regular Diet Procedures Procedures Performed: Primary lower transverse caesarean section. Delivery of live female at 1104. Pending Studies Studies pending at discharge: no Medical Emergencies . Who to Call and When: Medical Emergencies: If at any time you feel your situation is an emergency, please call [phone] immediately. . Non-Emergent Contact Non-Emergency issues call your: Hardboard Press Operator Call Non-Emergent contact if: you have a fever, temperature is above 101 . . "Provider Documentation" section prepared by Myles Mensah. VTE Core Measure Inpt VTE Proph given/why not?: Treatment not indicated
--- NOTE | 2016-11-13 06:52 | Medical Student: [facility] ---
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 Subjective conversation w/ patient Ambulation: ambulating normally Voiding: no voiding problems Passing Gas: Yes Diet Tolerance: Regular Diet Lochia: Small Feeding Type: Breast Feeding Pain: 3/10, controlled with medication Notes: No acute events overnight. Review of Systems Constitutional: No chills, No fever Respiratory: No cough, No shortness of breath Cardiac: No chest pain, No edema, No palpitations Breast: No breast pain, No problem reported Abdomen: + pain (at incision with movement), No nausea, No vomiting Female : No dysuria, No urinary frequency Objective Vital Signs Date Time Temp Pulse Resp B/P Pulse Ox O2 Delivery O2 Flow Rate FiO2 11/13/16 00:42 Room Air 11/13/16 00:33 36.5 65 18 109/65 11/12/16 16:20 36.5 63 18 109/63 100 Room Air 11/12/16 16:20 Room Air 11/12/16 08:24 97 Room Air 11/12/16 08:10 Room Air 11/12/16 07:26 36.7 63 16 102/60 97 Room Air Physical Exam General Appearance: WELL-APPEARING, NO APPARENT DISTRESS Respiratory/Chest: lungs clear, no respiratory distress, no accessory muscle use Cardiovascular: regular rate, rhythm, no edema, no murmur Abdomen: normal bowel sounds, non tender, soft Fundus: Firm, Relation to Umbilicus (2cm below) Incision Description: Clean, Dry & Intact Extremities: non-tender, no pedal edema, no calf tenderness Laboratory Results Last 24 Hours Test 11/13/16 06:00 Medications Current Inpatient Medications Medications (Trade) Dose Ordered Sig/Susan Route Start Time Stop Time Status Last Admin Dose Admin Prenat Multivit/ [place]/Iron/Folic Ac ( Vitamin Tab) 1 tab DAILY PO 11/12/16 08:00 12/12/16 07:59 11/12/16 08:46 1 TAB Ketorolac Tromethamine (Toradol Inj) 30 mg Q6H PRN IV. 11/12/16 06:00 11/17/16 05:59 Oxycodone/ Acetaminophen (Percocet 5-325mg Tab) 1 tab Q4H PRN PO 11/12/16 06:00 11/26/16 05:59 11/13/16 01:40 1 TAB Oxycodone/ Acetaminophen (Percocet 5-325mg Tab) 2 tab Q4H PRN PO 11/12/16 06:00 11/26/16 05:59 Ibuprofen (Motrin Tab) 600 mg Q4H PRN PO 11/11/16 11:30 12/11/16 11:29 11/13/16 01:39 600 MG Ondansetron HCl (Zofran Inj) 4 mg Q4H PRN IV 11/12/16 06:00 12/12/16 05:59 Magnesium Hydroxide (Milk Of Magnesia Susp) 30 ml HS PRN PO 11/11/16 11:30 12/11/16 11:29 Cocaine HCl (Supercream 0.870% Cr) BID PRN EXT 11/11/16 11:30 11/25/16 11:29 Lanolin (Lanolin Oint) PRN PRN EXT 11/11/16 11:30 12/11/16 11:29 Hydrocortisone Acetate (Anusol Hc Supp) 25 mg BID PRN [place] 11/11/16 11:30 12/11/16 11:29 Benzocaine (Dermoplast Aero Spr) 1 appln PRN PRN EXT 11/11/16 11:30 12/11/16 11:29 Diphenhydramine HCl (Benadryl Cap) 25 mg QID PRN PO 11/12/16 06:00 12/12/16 05:59 Diphenhydramine HCl (Benadryl Inj) 25 mg QID PRN IV 11/12/16 06:00 12/12/16 05:59 Senna 17.2 mg 17.2 mg HS PRN PO 11/11/16 11:30 12/11/16 11:29 Lactated Ringer's (Lr 1000ml) 1,000 ml @ 125 mls/hr Q8H IV 11/11/16 20:45 12/11/16 20:44 11/11/16 21:13 125 MLS/HR Assessment and Plan Post-Op Day Number: 2 Continue Routine Care: ASSESSMENT: Lolly is a 31 year old postop day #2 s/p section for a double footling breech at 39 1/7 weeks. She is doing well clinically. PLAN: Encourage ambulation as tolerated. Encourage . Continue regular diet. Pain medication as needed and continue vitamins. Discharge to home today. Discussed resting, feeding, pain control, mastitis, control, follow up in 6 weeks and reasons to call sooner, if necessary.
--- NOTE | 2016-11-13 06:54 | Progress Note ---
Subjective Nov 13, 2016. Subjective conversation w/ patient, physical exam Ambulation: ambulating normally Voiding: no voiding problems Passing Gas: Yes Diet Tolerance: Regular Diet Lochia: Small Feeding Type: Breast Feeding Pain: 3/10 improves with medication Comment: Patient was seen at the bedside. No acute event overnight. Review of Systems Constitutional: No fever Respiratory: No cough, No shortness of breath Cardiac: No chest pain Breast: No breast lump Abdomen: No nausea, No pain, No vomiting Female : No dysuria Denies headache Objective Vital Signs Date Time Temp Pulse Resp B/P Pulse Ox O2 Delivery O2 Flow Rate FiO2 11/13/16 00:42 Room Air 11/13/16 00:33 36.5 65 18 109/65 11/12/16 16:20 36.5 63 18 109/63 100 Room Air 11/12/16 16:20 Room Air 11/12/16 08:24 97 Room Air 11/12/16 08:10 Room Air 11/12/16 07:26 36.7 63 16 102/60 97 Room Air Physical Exam General Appearance: WELL-APPEARING, WD/WN Respiratory/Chest: chest non-tender, lungs clear, normal breath sounds Cardiovascular: regular rate, rhythm Abdomen: normal bowel sounds, non tender, soft Fundus: Firm, Relation to Umbilicus (2cm below) Incision Description: Clean, Dry & Intact Extremities: non-tender, no pedal edema, no calf tenderness Laboratory Results Last 24 Hours Test 11/13/16 06:00 Medications Current Inpatient Medications Medications (Trade) Dose Ordered Sig/Susan Route Start Time Stop Time Status Last Admin Dose Admin Prenat Multivit/ [place]/Iron/Folic Ac ( Vitamin Tab) 1 tab DAILY PO 11/12/16 08:00 12/12/16 07:59 11/12/16 08:46 1 TAB Ketorolac Tromethamine (Toradol Inj) 30 mg Q6H PRN IV. 11/12/16 06:00 11/17/16 05:59 Oxycodone/ Acetaminophen (Percocet 5-325mg Tab) 1 tab Q4H PRN PO 11/12/16 06:00 11/26/16 05:59 11/13/16 01:40 1 TAB Oxycodone/ Acetaminophen (Percocet 5-325mg Tab) 2 tab Q4H PRN PO 11/12/16 06:00 5/2/17 05:59 Ibuprofen (Motrin Tab) 600 mg Q4H PRN PO 11/11/16 11:30 12/11/16 11:29 11/13/16 01:39 600 MG Ondansetron HCl (Zofran Inj) 4 mg Q4H PRN IV 11/12/16 06:00 12/12/16 05:59 Magnesium Hydroxide (Milk Of Magnesia Susp) 30 ml HS PRN PO 11/11/16 11:30 12/11/16 11:29 Cocaine HCl (Supercream 0.870% Cr) BID PRN EXT 11/11/16 11:30 11/25/16 11:29 Lanolin (Lanolin Oint) PRN PRN EXT 11/11/16 11:30 12/11/16 11:29 Hydrocortisone Acetate (Anusol Hc Supp) 25 mg BID PRN [place] 11/11/16 11:30 12/11/16 11:29 Benzocaine (Dermoplast Aero Spr) 1 appln PRN PRN EXT 11/11/16 11:30 12/11/16 11:29 Diphenhydramine HCl (Benadryl Cap) 25 mg QID PRN PO 11/12/16 06:00 12/12/16 05:59 Diphenhydramine HCl (Benadryl Inj) 25 mg QID PRN IV 11/12/16 06:00 12/12/16 05:59 Senna 17.2 mg 17.2 mg HS PRN PO 11/11/16 11:30 12/11/16 11:29 Lactated Ringer's (Lr 1000ml) 1,000 ml @ 125 mls/hr Q8H IV 11/11/16 20:45 12/11/16 20:44 11/11/16 21:13 125 MLS/HR Assessment and Plan Post-Op Day#: 2 Continue Routine Care: A/P: This is a 31 y/o female, , s/p elective repeat . She is ambulating and clinically stable to discharge. - Vital signs are reviewed and WNL (Tmax 36.7 ) - Last Hgb 10.9 - Blood type B+, GBS neg, Rubella Immune - No signs of depression. - Routine care - Discussed resting, feeding, pain control, mastitis, control, follow up in 6 weeks and reasons to call sooner, if necessary. - Continue with pain medication as needed, and continue vitamins. - Encourage breast feeding and educate about breast feeding - Patient understands and keen for home. - Plan to discharge home Resident Physician Supervision Note: I interviewed and examined the patient. Discussed with Dr. Mensah and agree with findings and plan as documented in the note. Any exceptions or clarifications are listed here: [None] Documented By: Jeff Napoles
[2016-11-13] MEDS ORDERED: TRDI30X IV. (07:03)
[2016-11-13] MEDS ORDERED: OXYC-57 PO (07:03)
[2016-11-13 07:28] LABS: HEMATOCRIT 33.6 % (37-47)
[2016-11-13 08:00] VITALS: BP 116/73; PULSE 62; TEMP 36.5
[2016-11-13] MEDS: PRENATAL VITAMIN TAB PO SCH (08:17)
[2016-11-13 13:15] VITALS: BP_DIAS 73; PULSE 62; TEMP 36.5
--- NOTE | 2016-11-18 10:41 | DISCHARGE SUMMARY ---
ADMISSION DIAGNOSES: 1. Intrauterine at 39-1/7 weeks. 2. Double footling breech presentation. DISCHARGE DIAGNOSES: 1. Same. 2. Complete breech presentation. PROCEDURES: Primary low transverse section. HISTORY OF PRESENT ILLNESS: The patient is a 31-year-old white female 2, para 1-0-0-1 with an EDC of 11/17/2016 making her 39 and 1/7 weeks. She presents for primary section for breech presentation. This was discovered on an ultrasound at 36 weeks where a low lying placenta was found to be resolved, but footling breech presentation was discovered. She declined attempt at external cephalic version. Otherwise this has been uncomplicated. She notes mild contractions, no vaginal bleeding, some normal discharge and good movement. For the rest of the patient's detailed history and physical, please see her dictated history and physical. ASSESSMENT: oLlly is a 31-year-old white female 2, para 1-0-1-1 with an EDC of 11/17/2016 for an estimated gestational age of 31 and 1/7 weeks, who presents for section for breech presentation. HOSPITAL COURSE: The patient was admitted. She had an ultrasound that confirmed that she was indeed still in breech presentation. She underwent a primary low transverse section without any difficulty. Estimated blood loss 700 mL to deliver a viable female in complete breech presentation, sacrum anterior. Apgars were 8 and 9, weight 8 pounds 12 ounces. Normal uterus, tubes, and ovaries were noted bilaterally. The patient's course was uncomplicated. She tolerated a regular diet, ambulated without difficulty, voided after the removal of her [place] catheter and had her pain well controlled on oral pain medication. She was . The patient was discharged home on postoperative day #2 with Percocet and ibuprofen for pain. Of note, the baby was transferred to a level 3 nursery because of development of some seizure-like activity.
== END 2016-11-13 16:45 | disposition home or self-care (01) | DRG 766 ==
LOC: C.LD 07:21 → EDSTATUS 09:00 → C.OBG 14:20
PROVIDERS: ADMIT Obstetrics & Gynecology; ATTEND Obstetrics & Gynecology
PROC: 10D00Z1 Extraction of Products of Conception, Low, Open Approach (ICD-10-PCS; principal; 2016-11-11 09:00)
DX: O32.8XX0 Maternal care for other malpresentation of fetus, not applicable or unspecified (principal); O99.62 Diseases of the digestive system complicating childbirth; K21.9 Gastro-esophageal reflux disease without esophagitis; Z37.0 Single live birth; Z3A.39 39 weeks gestation of pregnancy; Z86.19 Personal history of other infectious and parasitic diseases; Z87.42 Personal history of other diseases of the female genital tract

== ENCOUNTER → 2017-02-12 | Outpatient (CLI) | payer BC ==
[~2017-02-12] MED LIST changes: -CEFAZOLIN IV 2,000 MG in DEXTROSE 5% 50ML 50 ML IV SCH; +DIPH1TAB; +FAMO20TA11 PO; -MULT-506 PO; +OXYC-57 PO; +TRDI30X IV.
[2017-02-12 08:01] LABS: PREG INTERNAL NEGATIVE QC NEG CLEAR BACKGROUND; PREG INTERNAL POSITIVE QC POS CONTROL LINE
== END | disposition home or self-care (01) ==
LOC: C.LAB1850 07:18
PROVIDERS: ATTEND Physician Assistant
DX: Z30.9 Encounter for contraceptive management, unspecified (principal)